=== PATIENT | female | born 1985 ===

== ENCOUNTER 2016-12-03 13:54 | Emergency (ER) | payer OTHER ==
--- NOTE | 2016-12-03 15:03 | UC ---
Respiratory Complaint HPI - HPI Summary HPI Summary: Started feeling tired/run-down 5 days ago, then coughing starting 3 days ago. Denies fever, trouble breathing, wheezing, nasal congestion, or ST. Says some of her coughing fits remind her of when she had pneumonia about 4 years ago -- was on bed-rest, had x-rays and abx. - History of Current Complaint Chief Complaint: UCRespiratory Stated Complaint: COUGH, CONGESTION Time Seen by Provider: 12/03/16 14:32 Hx Obtained From: Patient Hx Last Menstrual Period: iud ?: No Onset/Duration: Gradual Onset, Lasting Days Timing: Constant Severity Initially: Mild Severity Currently: Mild Character: Cough: Nonproductive Aggravating Factors: Exertion, Deep Breaths Alleviating Factors: Upright Position Associated Signs And Symptoms: Positive: Negative - Allergies/Home Medications Allergies/Adverse Reactions: Allergies Allergy/AdvReac Type Severity Reaction Status Date / Time No Known Allergies Allergy Verified 12/03/16 14:22 Home Medications: Home Medications NK [No Home Medications Reported] 12/03/16 [History Confirmed 12/03/16] PMH/Surg Hx/FS Hx/Imm Hx Endocrine History Of: Denies: Diabetes, Thyroid Disease Cardiovascular History Of: Denies: Cardiac Disorders, Hypertension Respiratory History Of: Denies: COPD, Asthma GI/ History Of: Denies: Ulcer - Surgical History Surgical History: None - Family History Known Family History: Negative: Blood Disorder - Social History Occupation: Employed Full-time Lives: With Family Alcohol Use: Weekly Substance Use Type: None Smoking Status (MU): Never Smoked Tobacco Review of Systems Constitutional: Negative Skin: Negative Eyes: Negative ENT: Negative Respiratory: Cough Cardiovascular: Negative Gastrointestinal: Negative Genitourinary: Negative Motor: Negative Neurovascular: Negative Musculoskeletal: Negative Neurological: Negative Psychological: Negative All Other Systems Reviewed And Are Negative: Yes Physical Exam Triage Information Reviewed: Yes Appearance: Well-Appearing, No Pain Distress, Well-Nourished Vital Signs: Initial Vital Signs Temp 97.7 F 12/03/16 14:19 Pulse 68 12/03/16 14:19 Resp 18 12/03/16 14:19 BP 116/70 12/03/16 14:19 Pulse Ox 100 12/03/16 14:19 Vital Signs Reviewed: Yes Eye Exam: Normal Eyes: Positive: Conjunctiva Clear ENT Exam: Normal ENT: Positive: Normal ENT inspection, Hearing grossly normal, Pharynx normal, TMs normal Dental Exam: Normal Neck exam: Normal Neck: Positive: Supple, Nontender, No Lymphadenopathy Respiratory Exam: Normal Respiratory: Positive: Chest non-tender, Lungs clear, Normal breath sounds, No respiratory distress, No accessory muscle use Cardiovascular Exam: Normal Cardiovascular: Positive: RRR, No Murmur Musculoskeletal Exam: Normal Neurological Exam: Normal Psychological Exam: Normal Skin Exam: Normal UC Diagnostic Evaluation - Laboratory O2 Sat by Pulse Oximetry: 100 Respiratory Course/Dx - Differential Dx/Diagnosis Provider Diagnoses: bronchitis, likely viral Discharge - Discharge Plan Condition: Stable Disposition: HOME Patient Education Materials: Acute Bronchitis (ED) Additional Instructions: We used to think antibiotics were necessary to treat bronchitis, but studies have shown that respiratory viruses cause the disease in the vast majority of cases. Like head colds, most cases of bronchitis get better without antibiotics. We may prescribe antibiotics if we believe bacteria are damaging your airways, or if there's high risk the bronchitis will worsen into pneumonia (such as for individuals with emphysema or other lung disease). Increase your fluid intake. A cool mist humidifier may make your lungs more comfortable. An expectorant (cough medicine that loosens phlegm) can help. Recovery from bronchitis can be somewhat slow, but you should not have any significant worsening or new fevers. As long as you can breathe easily and you continue to have steady improvement, it is not important how many days it takes you to get better. Call or return if you develop increasing fever, shortness of breath, chest pain , bloody sputum, or otherwise worsen. If you have not improved at all after several days, contact your primary care physician or return here.
== END 2016-12-03 15:05 | disposition home or self-care (01) ==
LOC: UCEAST 13:54
DX: J40 Bronchitis, not specified as acute or chronic (principal)
CPT/HCPCS: 99201; G0463